=== PATIENT | female | born 1970 | race Caucasian/White ===

== ENCOUNTER → 2025-01-13 | Day surgery (SDC) | payer OTHER ==
[2025-01-09 15:33] LABS: BASOPHILS % 0.5 % (0.0-1.0); EOSINOPHILS # (AUTO) 0.1 (0.0-0.4); EOSINOPHILS % 2.1 % (0.0-6.0); HEMATOCRIT 39.5 % (34.2-44.1); HEMOGLOBIN 12.5 g/dL (12.0-16.0); LYMPHOCYTES # (AUTO) 1.5 (1.0-3.2); LYMPHOCYTES % 22.3 % (18.0-39.1); MEAN CORPUSCULAR HEMOGLOBIN 27.1 pg (28-32); MEAN CORPUSCULAR HGB CONC 31.6 g/dL (31-35); MEAN CORPUSCULAR VOLUME 85.5 fL (81-99); MONOCYTES # (AUTO) 0.5 (0.2-0.8); MONOCYTES % 7.5 % (4.4-11.3); NEUTROPHILS # (AUTO) 4.4 (2.1-6.9); NEUTROPHILS % 67.4 % (38.7-80.0); PLATELET COUNT 311 x10e3/uL (140-360); RED BLOOD COUNT 4.62 x10e6/uL (3.6-5.1); WHITE BLOOD COUNT 6.54 x10e3/uL (4.8-10.8)
[2025-01-09 15:57] LABS: ALBUMIN 3.6 g/dL (3.5-5.0); ALBUMIN/GLOBULIN RATIO 1.1 (0.8-2.0); ANION GAP 12.7 mmol/L (8-16); BILIRUBIN,TOTAL 0.5 mg/dL (0.2-1.2); CALCIUM 8.9 mg/dL (8.4-10.2); CREATININE, SERUM 0.73 mg/dL (0.57-1.11); POTASSIUM 3.7 mmol/L (3.5-5.1); TOTAL PROTEIN 6.8 g/dL (6.5-8.1)
[~2025-01-13] MED LIST: ACETAMINOPHEN 1000 MG/100 ML 100 ML IV ONE; ADDERALL 20 MG20 MG PO; ALBUTEROL0.63 MG/3 NEB; AMBIEN10 MG PO; ASHWAGANDHA300 MG PO; BIOTIN1 MG PO; CO Q-1010 MG PO; DEXAMETHASONE SOD PHOS INJ 4 MG/ML SDV ONE; FAMOTIDINE 20 MG/2 ML VIAL IV ONE; FENTANYL CITRATE/PF 100MCG/2 ML INJ ONE; KETOROLAC TROMETHAMINE 30 MG/ML VIAL ONE; LIDOCAINE HCL 2% LOCAL INJ 5 ML SDV VIAL INJ ONE; MIDAZOLAM HCL 2 MG/2 ML VIAL ONE; MULTI-VITAMIN1 EACH PO; NP THYROID60 MG PO; ONDANSETRON HCL INJ 2MG/ML 2ML 2 MG/ML VIAL ONE; PHENYLEPHRINE HCL 1% 10 MG/ML VIAL ONE; PROPOFOL IV EMULSION 10 MG/ML 20 ML VIAL ONE; ROCURONIUM BROMIDE 1 ML IV ONE; SEVOFLURANE INHAL SOLN 250 ML PEN BTL ONE; SUCCINYLCHOLINE CHLORIDE 20 MG/ML 10ML VIAL ONE; SUGAMMADEX SODIUM 200 MG/2 ML VIAL IV ONE; VITAMIN D310 MCG PO; VITAMIN K240 MCG PO
[2025-01-13] MEDS: METOCLOPRAMIDE HCL 10 MG/2ML VIAL ONE (11:12)
[2025-01-13] MEDS: LACTATED RINGER'S 1,000 ML ONE (11:12)
[2025-01-13] MEDS: FAMOTIDINE 20 MG/2 ML VIAL IV ONE (11:17)
[2025-01-13 15:21] VITALS: TEMP 99
[2025-01-13] MEDS: FENTANYL CITRATE/PF 100MCG/2 ML INJ ONE (15:55)
[2025-01-13] MEDS: HYDROMORPHONE 1MG/1ML INJ ONE (16:10)
[2025-01-13] MEDS: HYDROCODONE/APAP 7.5MG-325MG 1 EA TAB ONE (17:03)
[2025-01-13 17:40] VITALS: BP 142/90; PULSE 75; RESP 16; O2SAT 97
== END | disposition home or self-care (01) ==
LOC: OR 09:22
PROVIDERS: ATTEND Surgery
DX: K80.10 Calculus of gallbladder with chronic cholecystitis without obstruction (principal); Q43.4 Duplication of intestine; K43.9 Ventral hernia without obstruction or gangrene; K82.8 Other specified diseases of gallbladder; J45.909 Unspecified asthma, uncomplicated; R00.1 Bradycardia, unspecified; E03.9 Hypothyroidism, unspecified; F41.9 Anxiety disorder, unspecified; Z88.2 Allergy status to sulfonamides; Z01.810 Encounter for preprocedural cardiovascular examination; Z01.812 Encounter for preprocedural laboratory examination; Z79.899 Other long term (current) drug therapy
CPT/HCPCS: 22900; 36415; 47562; 80053; 85025; 88304; 93005; C1766; J0131; J0330; J1100; J1171; J1885; J2003; J2250; J2371; J2405; J2704; J2765; J3010; J7121